=== PATIENT | female | born 1965 | race Two or more races ===

== ENCOUNTER 2017-01-23 14:56 | Emergency (ER) | payer OTHER ==
--- NOTE | 2017-01-23 15:22 | EDPHY ---
H & P Stated Complaint: Intermittent pain R side of head~1mo;eye feels twitchy;nausea, dizzy Time Seen by Provider: 01/23/17 15:04 HPI/ROS: HPI CHIEF COMPLAINT: Right-sided headache x1 month HISTORY OF PRESENT ILLNESS: The patient very pleasant 51-year-old female Chinese-speaking only, daughter at bedside translates, presents emergency room with 1 month of right-sided throbbing pulsating headache. No other focal neuro deficit. Specifically no neck pain, no meningeal signs, no numbness tingling no weakness, no blurry vision or double vision. Patient tells me this been a month long throbbing right-sided headache intermittently better with ibuprofen. No previous headache history. No imaging of her head. Denies diabetes hypertension history of [place] or CVA. Decided come the emergency room today due to ongoing pain not relieved by ibuprofen. Past Medical History: No medical history does not take any daily medication Past Surgical History: No surgical history Social History: Denies daily use of drugs alcohol tobacco products, lives locally, daughter at bedside Chinese-speaking only. Family History: Noncontributory ROS REVIEW OF SYSTEMS: A comprehensive 10 point review of systems is otherwise negative aside from elements mentioned in the history of present illness. Exam Constitutional appears well nontoxic, triage nursing summary reviewed, vital signs reviewed, awake/alert. Eyes normal conjunctivae and sclera, EOMI, PERRLA. HENT normal inspection, atraumatic, moist mucus membranes, no epistaxis, neck supple/ no meningismus, no raccoon eyes. Respiratory clear to auscultation bilaterally, normal breath sounds, no respiratory distress, no wheezing. Cardiovascular rate normal, regular rhythm, no murmur, no edema, distal pulses normal. Gastrointestinal soft, non-tender, no rebound, no guarding, normal bowel sounds, no distension, no pulsatile mass. Genitourinary no CVA tenderness. Musculoskeletal no midline vertebral tenderness, full range of motion, no calf swelling, no tenderness of extremities, no meningismus, good pulses, neurovascularly intact. Skin pink, warm, & dry, no rash, skin atraumatic. Neurologic awake, alert and oriented x 3, AAOx3, moves all 4 extremities equally, motor intact, sensory intact, CN II-XII intact, normal cerebellar, normal vision, normal speech. Psychiatric normal mood/affect. Heme/Lymph/Immune no lymphadenopathy. Differential Diagnosis: Includes but is not limited to in a particular order, migraine headache, tension headache, cluster headache, doubt intracranial bleed , brain tumor Medical Decision Making:Plan for this patient IV establishment IV fluid bolus, migraine cocktail medication including Toradol, Decadron, Benadryl, Reglan. Will image patient's head CT head without contrast rule out bleed versus tumor. Reason for CT imaging is first-time headache in the ER. No previous imaging no headache history. Re-evaluation: CT scan of the head without IV contrast The results of the study are negative for acute intracranial abnormality specifically no tumor bleed The study was read by Dr. Gregory I viewed the images myself on the PACS system. 1640: Re-examination at this time patient resting comfortably. Neurological exam is unremarkable. Re-evaluation she feels much better headache is resolved after migraine cocktail. CT scan reviewed shows nothing acute. Recommend follow up with primary care doctor about migraine headache. Prescription for Fioricet. She understands return emergency room if she has worsening symptoms questions or concerns. Source: Patient - Personal History LMP (Females 10-55): 1-7 Days Ago Current Tetanus Diphtheria and Acellular Pertussis (TDAP): Unsure - Social History Smoking Status: Never smoked Constitutional: Initial Vital Signs Temperature (C) 36.8 C 01/23/17 14:58 Heart Rate 69 01/23/17 14:58 Respiratory Rate 18 01/23/17 14:58 Blood Pressure 144/83 H 01/23/17 14:58 O2 Sat (%) 97 01/23/17 14:58 O2 Delivery Mode Room Air Allergies/Adverse Reactions: No Known Allergies Allergy (Unverified 01/23/17 15:03) Home Medications: Medication Instructions Recorded Acet/Caffeine/Buta Fioricet 1 each PO Q6 #14 tab 01/23/17 [Fioricet (*)] Medical Decision Making - Diagnostics Imaging Results: Imaging Impressions Head CT 01/23/17 15:27 Impression: There is no acute abnormality identified on this unenhanced CT evaluation. If there is further clinical concern regarding the patient's symptoms, MR imaging is suggested, if not otherwise contraindicated. Findings and recommendations were discussed with Aaron Cardona MD at 16:35 , on 01/23/2017. - Data Points Laboratory Results: Laboratory Results 01/23/17 15:39 01/23/17 15:39 01/23/17 01/23/17 01/23/17 15:39 15:39 15:39 WBC 8.06 10^3/uL 10^3/uL (3.80-9.50) RBC 4.31 10^6/uL 10^6/uL (4.18-5.33) Hgb 13.5 g/dL g/dL (12.6-16.3) Hct 40.1 % % (38.0-47.0) MCV 93.0 fL fL (81.5-99.8) MCH 31.3 pg pg (27.9-34.1) MCHC 33.7 g/dL g/dL (32.4-36.7) RDW 13.0 % % (11.5-15.2) Plt Count 311 10^3/uL 10^3/uL (150-400) MPV 9.9 fL fL (8.7-11.7) Neut % (Auto) 51.9 % % (39.3-74.2) Lymph % (Auto) 33.5 % % (15.0-45.0) Real % (Auto) 8.4 % % (4.5-13.0) Eos % (Auto) 5.5 % % (0.6-7.6) Baso % (Auto) 0.5 % % (0.3-1.7) Nucleat RBC Rel Count 0.0 % % (0.0-0.2) Absolute Neuts (auto) 4.18 10^3/uL 10^3/uL (1.70-6.50) Absolute Lymphs (auto) 2.70 10^3/uL 10^3/uL (1.00-3.00) Absolute Monos (auto) 0.68 10^3/uL 10^3/uL (0.30-0.80) Absolute Eos (auto) 0.44 10^3/uL H 10^3/uL (0.03-0.40) Absolute Basos (auto) 0.04 10^3/uL 10^3/uL (0.02-0.10) Absolute Nucleated RBC 0.00 10^3/uL 10^3/uL (0-0.01) Immature Gran % 0.2 % % (0.0-1.1) Immature Gran # 0.02 10^3/uL 10^3/uL (0.00-0.10) PT 12.9 SEC SEC (12.0-15.0) INR 0.98 (0.83-1.16) Sodium 141 mEq/L mEq/L (134-144) Potassium 4.2 mEq/L mEq/L (3.5-5.2) Chloride 107 mEq/L mEq/L (97-110) Carbon Dioxide 24 mEq/l mEq/l (22-31) Anion Gap 10 mEq/L mEq/L (8-16) BUN 15 mg/dL mg/dL (7-23) Creatinine 0.7 mg/dL mg/dL (0.6-1.0) Estimated GFR > 60 Glucose 77 mg/dL mg/dL (70-100) Calcium 9.6 mg/dL mg/dL (8.5-10.4) Troponin I < 0.012 ng/mL ng/mL (0-0.034) Medications Given: Discontinued Medications Dexamethasone (Decadron Injection) 10 mg IVP EDNOW ONE Stop: 01/23/17 15:27 Last Admin: 01/23/17 15:42 Dose: 10 mg Diphenhydramine HCl (Benadryl Injection) 25 mg IVP EDNOW ONE Stop: 01/23/17 15:27 Last Admin: 01/23/17 15:43 Dose: 25 mg Sodium Chloride (Ns) 1,000 mls @ 0 mls/hr IV ONCE ONE PRN Reason: Wide Open Stop: 01/23/17 15:27 Last Admin: 01/23/17 15:43 Dose: 1,000 mls Ketorolac Tromethamine (Toradol) 30 mg IVP EDNOW ONE Stop: 01/23/17 15:27 Last Admin: 01/23/17 15:44 Dose: 30 mg Metoclopramide HCl (Reglan Injection) 10 mg IVP EDNOW ONE Stop: 01/23/17 15:27 Last Admin: 01/23/17 15:44 Dose: 10 mg Departure - Departure Disposition: Home, Routine, Self-Care Clinical Impression: Migraine headache Qualifiers: Migraine type: other Status migrainosus presence: without status migrainosus Intractability: not intractable Qualified Code(s): G43.809 - Other migraine, not intractable, without status migrainosus Condition: Good Instructions: Migraine Headache (ED) Additional Instructions: 1. Stay well-hydrated drink lots of fluids. 2. return emergency room if you have any worsening symptoms questions or concerns. 3. Please follow up with your primary care doctor. Referrals: [facility] [employer] [Primary Care Provider] - As per Instructions Prescriptions: Acet/Caffeine/Buta Fioricet [Fioricet (*)] 1 each PO Q6 #14 tab
[2017-01-23] MEDS ORDERED: DEXAMETHASONE 10 MG/ML VIAL IVP ONE (15:26)
[2017-01-23] MEDS ORDERED: METOCLOPRAMIDE 10 MG/2 ML VIAL IVP ONE (15:26)
[2017-01-23] MEDS ORDERED: NS 1,000 ML IV ONE (15:26)
[2017-01-23] MEDS ORDERED: KETOROLAC 30 MG/1 ML SDV IVP ONE (15:26)
[2017-01-23 15:47] LABS: % IMMATURE GRANULYOCYTES 0.2 % (0.0-1.1); ABSOLUTE IMMATURE GRANULOCYTES 0.02 10^3/uL (0.00-0.10); ADD DIFF? NO; ADD MORPH? NO; ADD SCAN? NO; ATYPICAL LYMPHOCYTE FLAG 10 (0-99); FRAGMENT RBC FLAG 0 (0-99); HEMATOCRIT 40.1 % (38.0-47.0); HEMOGLOBIN 13.5 g/dL (12.6-16.3); LEFT SHIFT FLG 0 (0-99); LIPEMIA HEMOLYSIS FLAG 80 (0-99); MEAN CELL HEMOGLOBIN 31.3 pg (27.9-34.1); MEAN CELL HEMOGLOBIN CONCENTR. 33.7 g/dL (32.4-36.7); MEAN PLATELET VOLUME 9.9 fL (8.7-11.7); PLATELET CLUMPS FLAG 10 (0-99); PLATELET COUNT 311 10^3/uL (150-400); RED BLOOD CELL COUNT 4.31 10^6/uL (4.18-5.33)
[2017-01-23 15:52] LABS: INR 0.98 (0.83-1.16); PROTIME(PATIENT) 12.9 SEC (12.0-15.0)
[2017-01-23 16:16] VITALS: RESP 16
[2017-01-23 16:19] LABS: ANION GAP 10 mEq/L (8-16); CALCIUM 9.6 mg/dL (8.5-10.4); CARBON DIOXIDE 24 mEq/l (22-31); CHLORIDE 107 mEq/L (97-110); CREATININE 0.7 mg/dL (0.6-1.0); GLOMERULAR FILTRATION RATE > 60; GLUCOSE 77 mg/dL (70-100); POTASSIUM 4.2 mEq/L (3.5-5.2); SODIUM 141 mEq/L (134-144)
[2017-01-23 16:30] LABS: TROPONIN I < 0.012 ng/mL (0-0.034)
[2017-01-23 16:56] VITALS: BP 118/68; PULSE 72; TEMP 97.7; O2SAT 95
== END 2017-01-23 16:56 | disposition home or self-care (01) ==
DX: G43.809 Other migraine, not intractable, without status migrainosus (principal)
CPT/HCPCS: 96374; J1200; J1885; J2765